=== PATIENT | male | born 1980 | race African-American/Black ===

== ENCOUNTER 2019-01-23 21:41 | Emergency (ER) | payer OTHER ==
[2019-01-23 21:48] VITALS: BP 150/98
[2019-01-23] MEDS ORDERED: Amoxicillin/Clavulanate TAB* 875 MG PO ONE (22:05)
[2019-01-23] MEDS ORDERED: Tetan/Diph/Pertus SYR(Tdap)* 0.5 ML SYR(BOOSTRIX) use SYR IM ONE (22:05)
--- NOTE | 2019-01-23 22:35 | ED ---
Bite Injury/Animal - HPI Summary HPI Summary: Patient complains of laceration to dorsal surface of webbing between the fourth and fifth digit of right hand. States he caught his finger on his puppies tooth. Denies loss of sensation or function. Puppies vaccinations are up-to- date. Tetanus status unknown. - History of Current Complaint Chief Complaint: EDLacSutureRecheck Stated Complaint: PUNCTURE ON RIGHT HAND PER PT Time Seen by Provider: 01/23/19 22:00 Hx Obtained From: Patient Onset of Injury: Happened hours ago Type of Bite: Pet Hx of Bite: Unprovoked Has Animal Been Immunized?: Yes Severity Currently: None Pain Intensity: 0 Pain Scale Used: 0-10 Numeric Character: Abrasion/Laceration Aggravating Factor(s): Nothing Alleviating Factor(s): Nothing Associated Signs And Symptoms: Positive: Negative Animal Available for Observation: Yes - Allergies/Home Medications Allergies/Adverse Reactions: Allergies Allergy/AdvReac Type Severity Reaction Status Date / Time No Known Allergies Allergy Verified 01/23/19 22:10 PMH/Surg Hx/FS Hx/Imm Hx Endocrine/Hematology History: Denies: Hx Anticoagulant Therapy Cardiovascular History: Denies: Hx Pacemaker/ICD History: Denies: Hx Dialysis Sensory History: Denies: Hx Eye Prosthesis Opthamlomology History: Denies: Hx Legally Blind EENT History: Denies: Hx Deafness Neurological History: Denies: Hx Dementia Psychiatric History: Denies: Hx Autism Infectious Disease History: No Infectious Disease History: Denies: Traveled Outside the [place] in Last 30 Days - Family History Known Family History: Positive: Non-Contributory - Social History Alcohol Use: Occasionally Substance Use Type: Reports: None Smoking Status (MU): Never Smoked Tobacco Review of Systems Constitutional: Negative Eyes: Negative ENT: Negative Cardiovascular: Negative Respiratory: Negative Gastrointestinal: Negative Genitourinary: Negative Musculoskeletal: Negative Skin: Other Neurological: Negative Psychological: Normal All Other Systems Reviewed And Are Negative: Yes Physical Exam - Summary Physical Exam Summary: Flexion and extension intact at each individual joint of all fingers of right hand. Laceration does not appear to involve capsules of MCP joint of the fourth or fifth digits. Triage Information Reviewed: Yes Vital Signs On Initial Exam: Initial Vitals Temp Pulse Resp BP Pulse Ox 98.3 F 83 18 150/98 97 01/23/19 21:42 01/23/19 21:42 01/23/19 21:42 01/23/19 21:42 01/23/19 21:42 Vital Signs Reviewed: Yes Appearance: Positive: Well-Appearing Skin: Positive: Warm Head/Face: Positive: Normal Head/Face Inspection Eyes: Positive: Normal Neck: Positive: Supple Respiratory/Lung Sounds: Positive: Clear to Auscultation Cardiovascular: Positive: Normal Abdomen Description: Positive: Nontender Musculoskeletal: Positive: Normal Neurological: Positive: Normal Psychiatric: Positive: Normal AVPU Assessment: Alert - [place] Coma Scale Best Eye Response: 4 - Spontaneous Best Motor Response: 6 - Obeys Commands Best Verbal Response: 5 - Oriented Coma Scale Total: 15 Procedures - Laceration/Wound Repair 1 Location: upper extremity Description: Linear Anesthesia: Local, 1.0% Length, Depth and Shape: 3cm x 1cm Betadine Prep?: Yes Irrigated w/ Saline (ccs): 300 Laceration/Wound Explored: clean Debridement: minimal Number of Sutures: 6 - 5.0 ethilon Layer Closure?: No Sterile Dressing Applied?: No Diagnostics - Vital Signs Vital Signs Temp Pulse Resp BP Pulse Ox 01/23/19 21:42 98.3 F 83 18 150/98 97 - Laboratory Lab Statement: Any lab studies that have been ordered have been reviewed, and results considered in the medical decision making process. Bite Injury Course/Dx - Course Course Of Treatment: Patient complains of laceration to dorsal surface of webbing between the fourth and fifth digit of right hand. States he caught his finger on his puppies tooth. Denies loss of sensation or function. Puppies vaccinations are up-to-date. Tetanus status unknown. Physical exam:Flexion and extension intact at each individual joint of all fingers of right hand. Laceration does not appear to involve capsules of MCP joint of the fourth or fifth digits. Vital signs within normal limits. Wound cleaned and sutured. Rx for Augmentin. Patient started on Augmentin here in the ED. Tetanus booster administered. Follow-up with Dr. Hilliard. - Diagnoses Provider Diagnosis: Laceration Discharge - Sign-Out/Discharge Documenting (check all that apply): Patient Departure Patient Received Moderate/Deep Sedation with Procedure: No - Discharge Plan Condition: Stable Disposition: HOME Prescriptions: Amoxicillin/Clavulanate TAB* [Augmentin TAB 875*] 875 mg PO BID #20 tab Patient Education Materials: Care For Your Stitches (ED), Laceration (ED) Referrals: Los Grady MD [Primary Care Provider] - Maikel Hilliard MD [Medical Doctor] - Additional Instructions: Sutures out in 10 days. Tomorrow he may wash with warm running water and soap. Keep wound clean and dry and intact. Do not submerge for 3 days. Follow-up with hand specialist Dr. Hilliard for further evaluation. - Billing Disposition and Condition Condition: STABLE Disposition: Home
== END 2019-01-23 22:47 | disposition home or self-care (01) ==
LOC: ED 21:41
DX: S61.411A Laceration without foreign body of right hand, initial encounter (principal); W26.8XXA Contact with other sharp object(s), not elsewhere classified, initial encounter
CPT/HCPCS: 12002; 90471; 90715; 99282; A9270-GY